=== PATIENT | female | born 2000 | race Caucasian/White ===

== ENCOUNTER 2024-08-08 16:41 | Inpatient (IN) | payer SELFPAY ==
[~2024-08-08 16:41] MED LIST: Bupivacaine 0.25% 10 ML SDV ONE
[2024-08-08] MEDS ORDERED: Nalbuphine 10 MG/1 ML Vial IVPUSH PRN (19:12)
[2024-08-08] MEDS ORDERED: Calcium Carbonate 500 MG Tab.Chew PO PRN (19:12)
[2024-08-08] MEDS ORDERED: Acetaminophen 325 MG Tab PO PRN (19:12)
[2024-08-08] MEDS ORDERED: Oxytocin/0.9 % Sodium Chloride 30 UNIT/500 ML BAG IV SCH (19:15)
[2024-08-08 19:30] LABS: BASOPHILS PERCENT AUTO 0.3 % (0.0-1.0); EOSINOPHILS ABSOLUTE AUTO 0.1 K/mm3 (0.0-0.4); EOSINOPHILS PERCENT AUTO 0.7 % (0.0-6.0); HEMATOCRIT 38.5 % (37.0-47.0); HEMOGLOBIN 13.2 gm/dl (12.0-16.0); IMMATURE GRAN ABSOLUTE AUTO 0.06 K/mm3 (0.00-0.05); IMMATURE GRAN PERCENT AUTO 0.4 % (0.0-0.4); LYMPHOCYTES ABSOLUTE AUTO 2.1 K/mm3 (1.0-4.8); MEAN CORPUSCULAR HEMOGLOBIN 29.4 pg (28.0-32.0); MEAN CORPUSCULAR HGB CONC 34.3 g/dl (32.0-36.0); MEAN CORPUSCULAR VOLUME 85.7 fl (83.0-99.0); MEAN PLATELET VOLUME 11.7 fl (9.4-12.3); MONOCYTES ABSOLUTE AUTO 0.9 K/mm3 (0.0-0.8); MONOCYTES PERCENT AUTO 5.9 % (0.0-8.0); NEUTROPHILS ABSOLUTE AUTO 11.8 K/mm3 (1.8-7.7); NEUTROPHILS PERCENT AUTO 78.7 % (41.0-71.0); PLATELET COUNT,PLT 243 K/mm3 (150-400); RED BLOOD CELL COUNT 4.49 M/mm3 (4.10-5.30); WHITE BLOOD CELL COUNT,WBC 14.98 K/mm3 (3.9-11.3)
[2024-08-08] MEDS: Lactated Ringers 1,000 ML IV SCH (20:28)
[2024-08-08] MEDS ORDERED: ePHEDrine 50 MG/ML SDV IVPUSH PRN (20:58)
[2024-08-08] MEDS ORDERED: diphenhydrAMINE 50 MG/ML SDV IVPUSH PRN (20:58)
[2024-08-08] MEDS: Ropivacaine 200 MG in Premix Bag 1 BAG EPIDUR PRN (21:05)
[2024-08-09] MEDS: Ondansetron 4 MG/2 ML SDV IVPUSH PRN (01:14)
[2024-08-09] MEDS: Oxytocin/0.9 % Sodium Chloride 30 UNIT/500 ML BAG IV SCH (02:36)
[2024-08-09] MEDS: Lidocaine 1% 50 ML MDV INJECT PRN (05:05)
[2024-08-09] MEDS: ceFAZolin 2 GM in Sodium Chloride 0.9% 50 ML IV ONE (07:42)
[2024-08-09] MEDS: Citric Acid/Sodium Citrate Solution 30 ML Cup PO ONE (07:42)
[2024-08-09] MEDS: Metoclopramide 10 MG/2 ML SDV IVPUSH ONE (07:42)
[2024-08-09] MEDS: Azithromycin 500 MG in Sodium Chloride 0.9% 250 ML IV ONE (07:42)
[2024-08-09] MEDS: Ibuprofen 600 MG Tab PO SCH (08:36)
[2024-08-09] MEDS: Benzocaine/Menthol 20%-0.5% Spray 78 GM Cannister TOP PRN (13:36)
[2024-08-09] MEDS: Witch Hazel Medicated Pads 40/Jar TOP PRN (13:36)
[2024-08-09] MEDS: Acetaminophen 325 MG Tab PO PRN (16:41)
[2024-08-09] MEDS: Docusate Sodium 100 MG Cap PO PRN (18:54)
== END 2024-08-10 13:45 | disposition home or self-care (01) | DRG 807 ==
LOC: JD.OB 16:41 → JD.OBCHECK 16:41 → JD.OB 19:12 → OBSVTOIN 08-09 05:07 → JD.OB 08-09 05:08
PROVIDERS: ADMIT Obstetrics & Gynecology; ATTEND Obstetrics & Gynecology
PROC: 10E0XZZ Delivery of Products of Conception, External Approach (ICD-10-PCS; principal; 2024-08-09)
PROC: 0HQ9XZZ Repair Perineum Skin, External Approach (ICD-10-PCS; 2024-08-09)
PROC: 3E0R3BZ Introduction of Anesthetic Agent into Spinal Canal, Percutaneous Approach (ICD-10-PCS; 2024-08-09)
PROC: 00HU33Z Insertion of Infusion Device into Spinal Canal, Percutaneous Approach (ICD-10-PCS; 2024-08-09)
DX: O70.0 First degree perineal laceration during delivery (principal); Z37.0 Single live birth; Z3A.39 39 weeks gestation of pregnancy; Z98.890 Other specified postprocedural states; Z87.891 Personal history of nicotine dependence; Z28.39 Other underimmunization status
CPT/HCPCS: 36415; 51701; 51702; 59025; 59409; 85025; 86592; 86850; 86900; 86901; A9270-GY; J0665; J2405; J2795; J7120; J7999